=== PATIENT | female | born 1995 | race Caucasian/White ===

== ENCOUNTER 2020-12-21 10:57 | Emergency (ER) | payer SELFPAY ==
[2020-12-21 11:00] VITALS: BP 131/66; PULSE 80; RESP 18; TEMP 36.8; O2SAT 99; BMI 35.9
[2020-12-21 11:27] VITALS: BP 114/71; PULSE 72; RESP 20; O2SAT 100
--- NOTE | 2020-12-21 11:30 | ECG_ITS ---
[facility] Test Date: 2020-12-21 Pat Name: Rianna Sauceda Department: Room: Gender: Female Sample Grinder: : 1995 Requested By: Aime Mccall I Order Number: [id number] Reading MD: MARGY CRUZ Measurements Intervals [place] Rate: 77 P: 35 NH: 157 QRS: 43 QRSD: 80 T: 35 QT: 372 QTc: 423 Interpretive Statements SINUS RHYTHM WITH SINUS ARRHYTHMIA LOW QRS VOLTAGE IN PRECORDIAL LEADS [QRS DEFLECTION < 1.0 mV IN CHEST LEADS] No previous ECG available for comparison Electronically Signed On 12-21-2020 21:16:02 CDT by MARGY CRUZ [email or web address]/store/NU/[id number] f
--- NOTE | 2020-12-21 11:32 | ED_ITS ---
HPI - Neuro Symptoms/Deficit General: Chief Complaint: Neuro Symptoms/Deficit Stated Complaint: STROKE SYS Time Seen by Provider: 12/21/20 11:11 Source: patient and family () Mode of arrival: ambulatory Limitations: no limitations History of Present Illness: HPI Narrative: Patient is a 25-year-old female with no significant past medical history who presents to the emergency department with concerns for stroke. According to the patient and her the patient sister noticed that she had a facial droop yesterday but the patient stated that she only felt different this morning. She feels normal on the right side of her face, her right eye will not close short, and her speech is different. The patient told her it was her allergies that are acting up. She apparently had a similar symptom when she was a child and they told her it was allergies. She is able to ambulate without difficulty, has no focal weakness. No recent fever. Onset (ago): day(s) (1) Timing confirmed by: family member (sister) Location: right face History of same: Yes Severity: mild Quality: weak and numb Relieving factors: none Exacerbating factors: none Context: gradual onset On Anticoagulants: No Associated symptoms: Deny chest pain, cough, diaphoresis, fevers/chills, headache(s), anorexia, malaise, nausea, seizures, short of breath, syncope, tingling, vertigo, vomiting or weakness Treatments Prior to Arrival: none Review of Systems General: Reports: 10 or more systems reviewed and unremarkable except in HPI and below Const: Denies: malaise or diaphoresis Card: Denies: chest pain or syncope GI: Denies: nausea or vomiting Neuro: Denies: headache(s) or vertigo [facility] ED Female Reproductive History: Date of last menstrual period: 10/31/20 NIH stroke score NIHSS: Level Of Consciousness - 1a: 0 Level Of Consciousness Questions - 1b: Both Correct Level Of Consciousness Commands - 1c: Both Correct Best Gaze - 2: Normal Visual Kessler - 3: No Visual Loss Facial Palsy - 4: Co mplete Paralysis Motor Arm Right - 5: No Drift Motor Arm Left - 5: No Drift Motor Leg Right - 6: No Drift Motor Leg Left - 6: No Drift Limb Ataxia - 7: Absent Sensory - 8: Normal Best Language - 9: No Aphasia Dysarthia - 10: Mild/Moderate Dysarthia Extinction And Inattention - 11: 0 Score: Total Score: 4 Physical Exam Const: COMMON NORMALS: no acute distress, average body habitus, patient oriented x3, no limitations, healthy appearing, alert and well nourished HENMT: COMMON NORMALS: normocephalic, atraumatic and moist oral mucous membranes HEAD & SCALP: normocephalic and atraumatic Eye: COMMON NORMALS: Equal, round and reactive pupils present, EOMs intact bilaterally, conjunctivae normal and no scleral icterus CONJUNCTIVA: Yes conjunctivae normal PUPIL: Yes Equal, round and reactive pupils present Neck/C-Spine: COMMON NORMALS: no meningeal signs and no JVD Resp: COMMON NORMALS: normal respiratory effort, No retractions, No use of accessory muscles, clear to auscultation bilaterally and percussion normal AUSCULTATION: clear to auscultation bilaterally PERCUSSION: percussion normal Cardio: COMMON NORMALS: no JVD, regular rate, regular rhythm, S1 normal heart sound present, S2 normal heart sound present, No gallops present (Cardio), No clicks present (Cardio), No murmurs present (Cardio), No rub (Cardio) and Peripheral pulses 2+ throughout RATE: regular rate RHYTHM: regular rhythm HEART SOUNDS: S1 normal heart sound present and S2 normal heart sound present PERIPHERAL PULSES: Peripheral pulses 2+ throughout GI: COMMON NORMALS: Normal to inspection, nondistended, normoactive bowel sounds present, Soft to palpation, non-tender, No hepatosplenomegaly present, no masses and no bruits PALPATION: Yes Soft to palpation and Yes No hepatosplenomegaly present Extremity: COMMON NORMALS: normal to inspection, full ROM, capillary refill normal, no calf tenderness and no pedal edema Neuro: COMMON NORMALS: patient oriented x3 SENSORIUM/ORIENTATION: Yes alert MENINGEAL SIGNS: Yes no meningeal signs CRANIAL NERVES: Yes CN VII (facial) Laterality: right CN VII findings: facial droop, flattened naso-labial fold, unable to puff cheeks, unable to raise eyebrow(s), weak closing of eye(s), asymmetrical smile and impaired sense of taste Skin: COMMON NORMALS: no rashes or lesions noted, no wounds, turgor normal, no jaundice, no petechiae and no mottling GENERAL SKIN EXAM: no rashes or lesions noted and turgor normal Course Reevaluation(s): Reevaluation #1: Discussed her clinical findings with the patient and her and my suspicion that this is duff's palsy. After my explanation, she declined a head CT and was satisfied with my explanation. She was ok with management of Duff's palsy and she voiced understanding and all questions answered. 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 She declined a head CT scan. She is managed with oral corticosteroids, antivirals, and supportive therapy. She will f/u with her PCP. Medical Records: Attestation: I reviewed the patient's medical records. Lab Data: Labs: Lab Results 12/21/20 12/21/20 12/21/20 Range/Units 11:53 11:53 11:53 WBC 11.4 H (4.0-10.0) 10^3/ uL RBC 5.08 (4.1-5.3) 10^6/u L Hgb 11.3 L (11.5-15.3) g/dL Hct 39.2 (37.0-47.0) % MCV 77.2 L (81-99) fL MCH 22.2 L (28.0-34.0) pg MCHC 28.8 L (30.0-36.0) g/dL RDW 16.9 H (12.1-15.1) % Plt Count 320 (130-400) 10^3/c mm MPV 11.9 H (7.4-10.4) fL Neut % (Auto) 64.8 % Lymph % (Auto) 22.8 % [place] % (Auto) 5.6 % Eos % (Auto) 5.7 % Baso % (Auto) 0.9 % Neut # (Auto) 7.40 (1.8-7.7) 10^3/u L Lymph # (Auto) 2.6 (0.8-4.8) 10^3/u L [place] # (Auto) 0.6 (0.2-0.9) 10^3/u L Eos # (Auto) 0.7 (0.0-0.8) 10^3/u L Baso # (Auto) 0.1 (0.0-0.1) 10^3/u L Nucleated RBC % (a uto) 0 % Nucleated RBCs # 0.0 /100WBC PT 14.00 (12.1-14.9) SECO NDS INR 1.05 (0.8-1.2) APTT 28.7 (23.9-36.7) SECO NDS Sodium 140 (136-145) mmol/L Potassium 4.0 (3.5-5.1) mmol/L Chloride 108 H (98-107) mmol/L Carbon Dioxide 22 (22-29) mmol/L Anion Gap 14.0 (5-19) BUN 9 (6-20) mg/dL Creatinine 0.6 (0.5-0.9) mg/dL GFR Calculation 120.8 (90-130) mL/min Glucose 95 (65-115) mg/dL POC Glucose (70-110) mg/dL Calculated Osmolal ity 288 (285-295) mOsm/k g Calcium 8.5 (8.5-10.5) mg/dL Total Bilirubin 0.4 (0.15-1.2) mg/dL AST 24 (0-32) U/L ALT 29 (0-33) U/L Alkaline Phosphata se 59 (35-105) IU/L Total Protein 6.7 (6.6-8.7) g/dL Albumin 3.9 (3.5-5.2) g/dL Globulin 2.8 (1.3-4.6) g/dL HCG, Qual (Negative) Urine Color (Yellow) Urine Appearance (CLEAR) Urine pH (5-7) Ur Specific Gravit y (1.005-1.030) Urine Protein (Negative) Urine Glucose (UA) (Normal) Urine Ketones (Negative) Urine Blood (Negative) Urine Nitrate (Negative) Urine Bilirubin (Negative) Urine Urobilinogen (Negative) mg/dL Ur Leukocyte Stephanie ase (Negative) Urine Opiates Scre en (Negative) ng/mL Ur Barbiturates Sc reen (Negative) ng/mL Ur Phencyclidine S crn (Negative) ng/mL Ur Amphetamines Sc reen (Negative) ng/mL U Benzodiazepines Scrn (Negative) ng/mL Urine Cocaine Scre en (Negative) ng/mL U Marijuana (THC) Screen (Negative) ng/mL 12/21/20 12/21/20 12/21/20 Range/Units 11:53 11:53 11:53 WBC (4.0-10.0) 10^3/ uL RBC (4.1-5.3) 10^6/u L Hgb (11.5-15.3) g/dL Hct (37.0-47.0) % MCV (81-99) fL MCH (28.0-34.0) pg MCHC (30.0-36.0) g/dL RDW (12.1-15.1) % Plt Count (130-400) 10^3/c mm MPV (7.4-10.4) fL Neut % (Auto) % Lymph % (Auto) % [place] % (Auto) % Eos % (Auto) % Baso % (Auto) % Neut # (Auto) (1.8-7.7) 10^3/u L Lymph # (Auto) (0.8-4.8) 10^3/u L [place] # (Auto) (0.2-0.9) 10^3/u L Eos # (Auto) (0.0-0.8) 10^3/u L Baso # (Auto) (0.0-0.1) 10^3/u L Nucleated RBC % (a uto) % Nucleated RBCs # /100WBC PT (12.1-14.9) SECO NDS INR (0.8-1.2) APTT (23.9-36.7) SECO NDS Sodium (136-145) mmol/L Potassium (3.5-5.1) mmol/L Chloride (98-107) mmol/L Carbon Dioxide (22-29) mmol/L Anion Gap (5-19) BUN (6-20) mg/dL Creatinine (0.5-0.9) mg/dL GFR Calculation (90-130) mL/min Glucose (65-115) mg/dL POC Glucose (70-110) mg/dL Calculated Osmolal ity (285-295) mOsm/k g Calcium (8.5-10.5) mg/dL Total Bilirubin (0.15-1.2) mg/dL AST (0-32) U/L ALT (0-33) U/L Alkaline Phosphata se (35-105) IU/L Total Protein (6.6-8.7) g/dL Albumin (3.5-5.2) g/dL Globulin (1.3-4.6) g/dL HCG, Qual Negative (Negative) Urine Color Yellow (Yellow) Urine Appearance Clear (CLEAR) Urine pH 5 (5-7) Ur Specific Gravit y 1.025 (1.005-1.030) Urine Protein Neg (Negative) Urine Glucose (UA) Norm (Normal) Urine Ketones Negative (Negative) Urine Blood Neg (Negative) Urine Nitrate Negative (Negative) Urine Bilirubin Neg (Negative) Urine Urobilinogen Norm (Negative) mg/dL Ur Leukocyte Stephanie ase Negative (Negative) Urine Opiates Scre en Negative (Negative) ng/mL Ur Barbiturates Sc reen Negative (Negative) ng/mL Ur Phencyclidine S crn Negative (Negative) ng/mL Ur Amphetamines Sc reen Negative (Negative) ng/mL U Benzodiazepines Scrn Negative (Negative) ng/mL Urine Cocaine Scre en Negative (Negative) ng/mL U Marijuana (THC) Screen Negative (Negative) ng/mL 12/21/20 Range/Units 11:59 WBC (4.0-10.0) 10^3/ uL RBC (4.1-5.3) 10^6/u L Hgb (11.5-15.3) g/dL Hct (37.0-47.0) % MCV (81-99) fL MCH (28.0-34.0) pg MCHC (30.0-36.0) g/dL RDW (12.1-15.1) % Plt Count (130-400) 10^3/c mm MPV (7.4-10.4) fL Neut % (Auto) % Lymph % (Auto) % [place] % (Auto) % Eos % (Auto) % Baso % (Auto) % Neut # (Auto) (1.8-7.7) 10^3/u L Lymph # (Auto) (0.8-4.8) 10^3/u L [place] # (Auto) (0.2-0.9) 10^3/u L Eos # (Auto) (0.0-0.8) 10^3/u L Baso # (Auto) (0.0-0.1) 10^3/u L Nucleated RBC % (a uto) % Nucleated RBCs # /100WBC PT (12.1-14.9) SECO NDS INR (0.8-1.2) APTT (23.9-36.7) SECO NDS Sodium (136-145) mmol/L Potassium (3.5-5.1) mmol/L Chloride (98-107) mmol/L Carbon Dioxide (22-29) mmol/L Anion Gap (5-19) BUN (6-20) mg/dL Creatinine (0.5-0.9) mg/dL GFR Calculation (90-130) mL/min Glucose (65-115) mg/dL POC Glucose 84 (70-110) mg/dL Calculated Osmolal ity (285-295) mOsm/k g Calcium (8.5-10.5) mg/dL Total Bilirubin (0.15-1.2) mg/dL AST (0-32) U/L ALT (0-33) U/L Alkaline Phosphata se (35-105) IU/L Total Protein (6.6-8.7) g/dL Albumin (3.5-5.2) g/dL Globulin (1.3-4.6) g/dL HCG, Qual (Negative) Urine Color (Yellow) Urine Appearance (CLEAR) Urine pH (5-7) Ur Specific Gravit y (1.005-1.030) Urine Protein (Negative) Urine Glucose (UA) (Normal) Urine Ketones (Negative) Urine Blood (Negative) Urine Nitrate (Negative) Urine Bilirubin (Negative) Urine Urobilinogen (Negative) mg/dL Ur Leukocyte Stephanie ase (Negative) Urine Opiates Scre en (Negative) ng/mL Ur Barbiturates Sc reen (Negative) ng/mL Ur Phencyclidine S crn (Negative) ng/mL Ur Amphetamines Sc reen (Negative) ng/mL U Benzodiazepines Scrn (Negative) ng/mL Urine Cocaine Scre en (Negative) ng/mL U Marijuana (THC) Screen (Negative) ng/mL EKG Data^: EKG 1: Attestation: I personally reviewed and interpreted this EKG as follows: EKG interpretation date: 12/21/20 EKG interpretation time: 11:06 Prior EKG tracings: not available for review Interpretation: Sinus rhythm with sinus arrhythmia. Heart rate [address] changes. Discharge Plan Discharge Patient Disposition: Home Clinical Impression: Duff's palsy Condition: Stable Prescriptions: New Artificial Tears (héctor/min) 83-15 % ointment 1 applic ophthalmic (eye) DAILY PRN (Reason: dry eye(s)) Qty: 3.5 RF: 0 Artificial Tears (cmc) 1 % drops 1 drp ophthalmic (eye) Q4H PRN (Reason: dry eye(s)) Qty: 15 RF: 0 Discharge Orders: Discharge ED (Routine); Ordered 12/21/20 Ordered By: Aime Mccall Discharge Diet: Usual diet Discharge Activity: Increase activity as tolerated Patient Instructions: Duff Palsy (ED) Activity Restrictions/Additional Instructions: Return for any new or worsening symptoms. Follow-up with your primary care provider within 3 days. Use the medications as required. During the day use the artificial eyedrops at least every 4 hours and as often as you need, and at night to use the artificial tears eye ointment before you go to bed. I also wanted to tape your eye shut when you are going to bed to prevent you from getting dry. During the day wear protective eyewear such as protective glasses to prevent your eye from getting dry or foreign body getting into the eye. Your symptoms should resolve within a few days but sometimes it can take several weeks to months to resolve. Coding Level of Care Code ED Medical Staff Coordinator for Chg Fwd Exam Comprehensive
[2020-12-21 12:00] LABS: Add Urine Microscopic? NO; Charge for UA Resulting for Rev
[2020-12-21 12:03] LABS: Glucose Point of Care 84 mg/dL (70-110)
[2020-12-21 12:06] LABS: HCG Qualitative Urine. Negative (Negative)
[2020-12-21 12:07] LABS: Bilirubin Urine Neg (Negative); Blood Urine Neg (Negative); Glucose Urine UA Norm (Normal); Ketones Urine Negative (Negative); Leukocyte Esterase Urine Negative (Negative); Nitrate Urine Negative (Negative); Protein Urine Neg (Negative); Specific Gravity, Urine 1.025 (1.005-1.030); Urine Appearance Clear (CLEAR); Urine Color Yellow (Yellow); Urobilinogen Urine Norm (Negative); pH Urine 5 (5-7)
[2020-12-21 12:10] LABS: Basophils # 0.1 10^3/uL (0.0-0.1); Basophils % 0.9 %; Eosinophils # 0.7 10^3/uL (0.0-0.8); Eosinophils % 5.7 %; Hematocrit 39.2 % (37.0-47.0); Hemoglobin 11.3 g/dL (11.5-15.3); Lymphocytes # 2.6 10^3/uL (0.8-4.8); Lymphocytes % 22.8 %; Mean Corpuscular HGB Conc 28.8 g/dL (30.0-36.0); Mean Corpuscular Hemoglobin 22.2 pg (28.0-34.0); Mean Corpuscular Volume 77.2 fL (81-99); Mean Platelet Volume 11.9 fL (7.4-10.4); Monocytes # 0.6 10^3/uL (0.2-0.9); Monocytes % 5.6 %; Neutrophils % 64.8 %; Nucleated Red Blood Cells % 0 %; Platelet Count 320 10^3/cmm (130-400); Red Blood Count 5.08 10^6/uL (4.1-5.3); Red Cell Distribution Width 16.9 % (12.1-15.1); White Blood Count 11.4 10^3/uL (4.0-10.0)
[2020-12-21 12:12] LABS: Amphetamines Screen Urine Negative (Negative); Barbiturates Screen Urine Negative (Negative); Benzodiazepines Screen Urine Negative (Negative); Cocaine Screen Urine Negative (Negative); INR 1.05 (0.8-1.2); Opiate Screen Urine Negative (Negative); PCP Screen Urine Negative (Negative); THC Screen Urine Negative (Negative)
[2020-12-21 12:13] LABS: Partial Thromboplastin Time 28.7 SECONDS (23.9-36.7)
[2020-12-21 12:23] LABS: Alanine Aminotransferase 29 U/L (0-33); Albumin Level 3.9 g/dL (3.5-5.2); Alkaline Phosphatase 59 IU/L (35-105); Aspartate Amino Transferase 24 U/L (0-32); Blood Urea Nitrogen 9 mg/dL (6-20); Calcium 8.5 mg/dL (8.5-10.5); Carbon Dioxide 22 mmol/L (22-29); Chloride 108 mmol/L (98-107); Globulin 2.8 g/dL (1.3-4.6); Glomerular Filtration Rate 120.8 mL/min (90-130); Glucose 95 mg/dL (65-115); Osmolality Calculated 288 mOsm/kg (285-295); Sodium 140 mmol/L (136-145); Total Bilirubin 0.4 mg/dL (0.15-1.2); Total Protein 6.7 g/dL (6.6-8.7)
[2020-12-21 12:49] LABS: Slide Review Slide Review Perform
[2020-12-21 13:13] VITALS: BP 115/55; PULSE 78; RESP 20; O2SAT 97
== END 2020-12-21 13:14 | disposition home or self-care (01) ==
PROVIDERS: Emergency Provider Family Medicine
DX: G51.0 Bell's palsy (principal)
CPT/HCPCS: 36416; 80053; 80306; 81003; 81025; 82962; 85025; 85610; 85730; 93005; 99284

== ENCOUNTER → 2021-12-31 10:47 | Outpatient (BNVA) | payer BC, MEDICAID, SELFPAY | PROVIDERS: Visit Provider Family Medicine | DX: O36.4XX0 Maternal care for intrauterine death, not applicable or unspecified (principal) | CPT/HCPCS: 84702 ==

== ENCOUNTER → 2022-01-14 13:35 | Outpatient (BNVA) | payer BC, MEDICAID, SELFPAY | PROVIDERS: Visit Provider Family Medicine | DX: O03.9 Complete or unspecified spontaneous abortion without complication (principal) | CPT/HCPCS: 84702 ==

== ENCOUNTER → 2022-06-22 12:55 | Outpatient (BNVA) | payer BC, MEDICAID, SELFPAY | PROVIDERS: PCP Family Medicine; Visit Provider Family Medicine | DX: R30.0 Dysuria (principal); Z34.90 Encounter for supervision of normal pregnancy, unspecified, unspecified trimester; Z34.80 Encounter for supervision of other normal pregnancy, unspecified trimester; Z87.59 Personal history of other complications of pregnancy, childbirth and the puerperium | CPT/HCPCS: 80307; 81000; 81025; 84144; 84156; 84443; 84702; 85025; 86592; 86762; 86803; 86850; 86900; 87086; 87340; 87491; 87591; 87806; 88175 ==

== ENCOUNTER → 2022-06-25 10:24 | Outpatient (BNVA) | payer BC, MEDICAID, SELFPAY | PROVIDERS: PCP Family Medicine; Visit Provider Family Medicine | DX: Z34.80 Encounter for supervision of other normal pregnancy, unspecified trimester (principal); Z87.59 Personal history of other complications of pregnancy, childbirth and the puerperium | CPT/HCPCS: 84144; 84702 ==

== ENCOUNTER → 2022-07-12 10:21 | Outpatient (BNVA) | payer BC, MEDICAID, SELFPAY | PROVIDERS: PCP Family Medicine; Visit Provider Family Medicine | DX: Z34.91 Encounter for supervision of normal pregnancy, unspecified, first trimester (principal); Z3A.08 8 weeks gestation of pregnancy | CPT/HCPCS: 76801 ==

== ENCOUNTER → 2022-09-09 09:24 | Outpatient (BNVA) | payer BC, MEDICAID, SELFPAY | PROVIDERS: PCP Family Medicine; Visit Provider Family Medicine | DX: Z34.80 Encounter for supervision of other normal pregnancy, unspecified trimester (principal) | CPT/HCPCS: 81511 ==

== ENCOUNTER 2022-09-30 08:03 | Outpatient (CLI) | payer BC, MEDICAID, SELFPAY ==
--- NOTE | 2022-09-30 08:45 | US_ITS ---
WS: [id number] OBSTETRICAL ULTRASOUND COMPLETE HISTORY: Anatomy US COMPARISON: 07/12/2022 Single intrauterine gestation in breech presentation. Cervix is Closed and normal length. Just superior to the cervix is a hypoechoic area elevated in the inferior portion of the placenta. I suspect this is probably a Skillman Martinez. Less likely retroplacen samir hemorrhage. Patient is not symptomatic. Cervical length is 4.3 cm. Normal amount of amniotic fluid surrounds the fetus. Placenta: Posterior, no previa or abruption. The distal placenta is being elevated by a hypoechoic r egion along the posterior uterine wall. Placenta grade 1 Heart: 153 BPM. Four chambers are identified. RIGHT and LEFT outflow tracts are unremarkable. Anatomy: Intracranial structures and spine are normal. kidneys, stomach and urinary bladd er are unremarkable. Abdominal wall, three-vessel cord and cord insertion site are normal. 4 extremities are present. profile: Unremarkable. Gender: Female. measurements: BPD = 4.5 cm = 19w4d; HC = 17.7 cm = 20w1d; AC = 15.2 cm = 20w3d; FL = 3.3 cm = 20w2d; EFW: 347 g. not available. Biometry is internally concordant. AGA by ultrasound: 20w1d NOEL by ultrasound: 02/16/2023 US/US OB >= 14 weeks fetus [id number] IMPRESSION: 1. Single intrauterine gestation of 20w1d with an NOEL of 02/16/2023. 2. Unremarkable screening survey of anatomy. 3. Elevation of the distal posterior placenta. Favor this is a Zeyad Martinez. Patient was not symptomatic during this examination. Short-term reevaluation of the placenta can be obtained for resolution. This did not change at the end of the examination.
== END 2022-09-30 08:04 | disposition home or self-care (01) ==
LOC: RAD 08:04
PROVIDERS: PCP Family Medicine; Visit Provider Family Medicine
DX: Z34.80 Encounter for supervision of other normal pregnancy, unspecified trimester (principal)
CPT/HCPCS: 76805

== ENCOUNTER 2022-10-13 08:52 | Outpatient (CLI) | payer BC, MEDICAID, SELFPAY ==
--- NOTE | 2022-10-13 07:45 | US_ITS ---
WS: [id number] LIMITED OBSTETRICAL ULTRASOUND HISTORY: Elevated placental edge COMPARISON: 09/30/2022 and 07/12/2022 Presentation: Breech. Cervix: Closed and normal length. Increased soft tissue adjacent to the cervical os involving the low er uterine segment is no longer present. This is most consistent with a Towner Matrinez which has resol bob. Placenta: Posterior, no previa. Grade: 1 HEART: FHR of 144 BPM. measurements: BPD = 5.0 cm = 21w0d; HC = 19.7 cm = 21w6d; AC = 16.8 cm = 21w6d; FL = 3.7 cm = 21w6d; MELISA: 11.3 cm EFW: 454 g; AGA by ultrasound: 21w5d NOEL by ultrasound: 02/18/2023 US/US OB limited [id number] IMPRESSION: 1. Single intrauterine gestation of 21 weeks 5 days with an EDC of 02/18/2023. Normal growth since the first trimester ultrasound. 2. Interval resolution of the increased soft tissue near the internal cervical os and distal placental edge. Consistent with resolved Towner Martinez.
== END 2022-10-13 08:53 | disposition home or self-care (01) ==
LOC: RAD 08:55
PROVIDERS: PCP Family Medicine; Visit Provider Family Medicine
DX: R93.89 Abnormal findings on diagnostic imaging of other specified body structures (principal); Z34.80 Encounter for supervision of other normal pregnancy, unspecified trimester; Z3A.21 21 weeks gestation of pregnancy
CPT/HCPCS: 76815

== ENCOUNTER → 2022-11-04 10:36 | Outpatient (BNVA) | payer BC, MEDICAID, SELFPAY | PROVIDERS: PCP Family Medicine; Visit Provider Family Medicine | DX: Z34.80 Encounter for supervision of other normal pregnancy, unspecified trimester (principal) | CPT/HCPCS: 82950 ==

== ENCOUNTER → 2022-12-23 10:39 | Outpatient (BNVA) | payer BC, MEDICAID, SELFPAY | PROVIDERS: PCP Family Medicine; Visit Provider Family Medicine | DX: Z34.80 Encounter for supervision of other normal pregnancy, unspecified trimester (principal); Z51.81 Encounter for therapeutic drug level monitoring | CPT/HCPCS: 85025 ==

== ENCOUNTER → 2023-01-19 13:54 | Outpatient (BNVA) | payer BC, MEDICAID, SELFPAY | PROVIDERS: PCP Family Medicine; Visit Provider Family Medicine | DX: Z34.90 Encounter for supervision of normal pregnancy, unspecified, unspecified trimester (principal) | CPT/HCPCS: 87081 ==

== ENCOUNTER 2023-01-31 22:35 | Outpatient (CLI) | payer BC, MEDICAID, SELFPAY ==
[2023-01-31] VITALS (15 sets, daily range): BP systolic 122–139; BP diastolic 65–84; PULSE 74–96; RESP 16; O2SAT 97–99; BMI 38.3
[2023-01-31 23:20] LABS: Actim Prom Negative
== END 2023-01-31 23:50 | disposition home or self-care (01) ==
LOC: OPOB 22:35 → OBGYN 22:36
PROVIDERS: PCP Family Medicine; Visit Provider Family Medicine
DX: O46.90 Antepartum hemorrhage, unspecified, unspecified trimester (principal); Z3A.00 Weeks of gestation of pregnancy not specified
CPT/HCPCS: 59025; 84112; 99211

== ENCOUNTER 2023-02-10 05:11 | Inpatient (IN) | payer BC, MEDICAID, SELFPAY ==
--- NOTE | 2023-01-25 09:22 | ANES.PREANE2 ---
Pre-Anesthetic Assessment Height/Weight: Height 1.55 m Operation Date: 02/10/23 07:20 Proposed Procedures p repeat low transverse section with BLT tubal ligation(Bilateral) - Adrian Mendez MD Familial anesthetic complications: None Social No alcohol and No tobacco Exam alert, oriented x 3, clear to auscultation bilaterally and regular rate & rhythm Airway Mallampati: Class II Dentition: false Anesthetic Plan ASA status: 2 Anesthesia: Regional (specify below) (spinal) Risk of > 500 ml blood loss (7ml/kg in children): Yes, adequate IV access and fluids planned Medications/Allergies Home Medications Medication Instructions Recorded Confirmed Last Taken Type carboxymethylcellulose sodium 1 % 1 drp ophthalmic (eye) Q4H PRN dry 12/21/20 01/19/23 Unknown Rx eye drops (Artificial Tears eye(s) #15 mL (carboxymethylcellulose)) white petrolatum-mineral oil 83 1 applic ophthalmic (eye) DAILY 12/21/20 01/19/23 Unknown Rx %-15 % eye ointment (Artificial PRN dry eye(s) #3.5 grams Tears (petrolatum/mineral oil)) prenat.vits,cathy,mss-tqmf-[id number] 1 tab PO DAILY 06/22/22 01/19/23 Unknown History Allergies Allergy/AdvReac Type Severity Reaction Status Date / Time Penicillins Allergy ALGY-Hives Verified 12/23/22 10:13 PFS Anesthesia Medical History (Updated 09/30/22 @ 16:16 by Adrian Mendez MD) Asthma Duff's palsy Surgical History (Updated 06/22/22 @ 21:18 by Adrian Mendez MD) Hx of section C/S x 3 Data Anesthesia Cardiac Studies: No Data to Display
[2023-02-10] VITALS (30 sets, daily range): BP systolic 97–137; BP diastolic 52–106; PULSE 56–118; RESP 16–18; TEMP 35.2–36.4; BMI 38.3
[2023-02-10] MEDS: lactated ringers 1,000 ML 999 ML IV (06:30)
[2023-02-10] MEDS: clindamycin 900 MG/50 ML PREMIX 100 MG IV (06:41)
[2023-02-10] MEDS: gentamicin inj 140 MG in sodium chloride 0.9% (100 ml) 100 ML 103.5 MG IV (06:44)
[2023-02-10] MEDS: citric acid-sodium citrate 30 mL UDC PO (06:46)
[2023-02-10] MEDS: metoclopramide 5 mg/mL SDV 2 mL 10 MG IVP (06:47)
[2023-02-10] MEDS: famotidine 20 mg/2 mL INJ IVP (06:47)
--- NOTE | 2023-02-10 06:49 | PM.HP ---
Providers/Chief Complaint Admitting Physician: Adrian Mendez MD Primary Care Provider: Adrian Mendez MD Chief Complaint: C Section History of Present Illness Rianna Saucdea is a 27 year old @ 39.1 weeks by 8 wk US inconsistent with LMP. Preg c/b prior LTCS x 3, h/o preeclampsia, h/o gDM diet controlled, h/o in NICU for resp. issues, h/o asthma. The patient presents for a scheduled repeat low-transverse section and requests a bilateral tubal ligation. She has been feeling well. She denies any fevers, chest pains, cough, nausea, vomiting, diarrhea, constipation, dysuria. She last ate and drank around 1130 last night. Review of Systems Narrative: See HPI Medications/Allergies Home Medications Medication Instructions Recorded Confirmed Last Taken Type prenat.vits,cathy,yrl-arcd-eywta 1 tab PO DAILY 06/22/22 02/10/23 02/10/23 History Allergies Allergy/AdvReac Type Severity Reaction Status Date / Time Penicillins Allergy ALGY-Hives Verified 12/23/22 10:13 PFSH Acute PFSH: Medical History Asthma Duff's palsy Surgical History Hx of section C/S x 3 Social History (Updated 02/10/23 @ 07:08 by Adrian Mendez MD) Smoking and tobacco status: never smoked Alcohol intake: never Substance/Drug Use: never Female Reproductive History: : 7 Vitals/I&O/Wt Last Vital Signs Pulse 73 02/10/23 05:18 Resp 16 02/10/23 05:27 BP 123/69 02/10/23 05:18 O2 Del Method Room Air 02/10/23 05:30 Weight last 48 hrs Weight 203 lb Physical Exam Narrative: General: Alert and oriented x3 Eyes: Pupils equal round and reactive to light and accommodation Mouth: Mucous membranes moist, pharynx non-erythematous Cardiac: Regular rate and rhythm without murmurs Lungs: Clear to auscultation bilaterally without wheezes, crackles or rhonchi Abdomen: Soft, non-tender, fundus consistent with gestational age Extremities: Trace edema in the bilateral lower extremities Data 02/10/23 06:35 A&P Assessment and plan (1) Supervision of normal intrauterine in multigravida: The patient is doing well at this time. She is in her normal state of health. She has had no significant complications during this . We will plan for a repeat low-transverse section with bilateral tubal ligation. All questions were answered. The patient is in agreement with the current plan of care. Attestations Medical Necessity Statement*: The patient will be here for greater than 2 midnights due to routine intrapartum and management of labor and delivery. Coding Level of Care Code Acute Code for Chg Fwd Diagnoses Supervision of normal intrauterine in multigravida Z34.80
[2023-02-10 06:58] LABS: Basophils # 0.1 10^3/uL (0.0-0.1); Basophils % 0.6 %; Eosinophils # 0.3 10^3/uL (0.0-0.8); Eosinophils % 3.7 %; Hematocrit 38.3 % (37.0-47.0); Lymphocytes # 1.8 10^3/uL (0.8-4.8); Lymphocytes % 19.4 %; Mean Corpuscular HGB Conc 31.3 g/dL (30.0-36.0); Mean Corpuscular Hemoglobin 26.1 pg (28.0-34.0); Mean Corpuscular Volume 83.3 fl (81-99); Mean Platelet Volume 12.9 fL (7.4-10.4); Monocytes # 0.5 10^3/uL (0.2-0.9); Monocytes % 5.8 %; Neutrophils # 6.34 10^3/uL (1.8-7.7); Neutrophils % 70.2 %; Nucleated Red Blood Cells % 0 %; Platelet Count 223 10^3/cmm (130-400); Red Cell Distribution Width 13.9 % (12.1-15.1)
--- NOTE | 2023-02-10 06:58 | P.ANESUD_ITS ---
Pre-Anesthetic Update Pre-Anesthetic Assessment: Date of Surgery/Procedure: 02/10/23 Preop Dayana gnosis: Previous Section, undesired fertility Proposed Procedure: Operation Date: 02/10/23 07:20 Proposed Procedures p repeat low transverse section with BLT tubal ligation(Bilateral) - Adrian Mendez MD Any changes to Pre-Anesthetic Assessment?: No Changes from Pre-Anesthetic Assessment: no Last Intake: 2229 meal 2300 drink Vitals: Pulse Rate 73 02/10/23 05:18 Pulse Rhythm Regular 02/10/23 05:30 Pulse Strength 3+ Normal 02/10/23 05:30 Respiratory Rate 16 02/10/23 05:27 Respiratory Effort Spontaneous, Non- Labored 02/10/23 05:30 Respiratory Depth Normal 02/10/23 05:30 Respiratory Patter n Normal 02/10/23 05:30 Blood Pressure 123/69 02/10/23 05:18 Oxygen Delivery Me thod Room Air 02/10/23 05:30 Cardiac Studies: No Data to Display
--- NOTE | 2023-02-10 09:17 | PM.OP ---
Operative Report Date of procedure: February 10, 2023 Pre-op diagnosis: 1. Intrauterine at 39.1 weeks gestation 2. Prior low-transverse section x3 3. Patient desires bilateral tubal ligation 4. History of asthma Post-op diagnosis: 1. Intrauterine status post repeat low-transverse section with bilateral tubal ligation at 39.1 weeks gestation 2. Prior low-transverse section x3 3. Delivery of healthy female weighing 7 pounds 10 ounces with Apgars of 8 and 9 Post-op findings: Moderate scar tissue present without significant adhesions appreciated. Procedure done: Repeat low transverse section with bilateral tubal ligation Specimens removed/disposition: Bilateral tubal segments sent to pathology Placenta discarded Surgeon: Adrian Mendez MD Estimated blood loss (mL): 300 Complications: None Findings: Thin lower uterine segment prior to delivery. Brief History: Rianna Sauceda is a 27 year old G7 now P4 status post repeat low-transverse section with bilateral tubal ligation @ 39.1 weeks by 8 wk US inconsistent with LMP. Preg c/b prior LTCS x 3, h/o preeclampsia, h/o gDM diet controlled, h/o infant in NICU for resp. issues, h/o asthma. Procedure: After informed consent was obtained, the patient was taken to the operating room and the patient was prepped and draped in a normal sterile fashion in the dorsal supine position.? A spinal was placed and adequate anesthesia was obtained.? At 7:33 AM on 02/10/2023 a Pfannenstiel skin incision was made and carried through to the underlying layer of fascia using a scalpel.? The fascial incision was then extended laterally using curved Mayos.? The fascia was then grasped with Jaziel clamps and the underlying rectus muscles were dissected off taking care to avoid injury to the underlying tissues.? The peritoneum was entered bluntly with one digit.? It was then bluntly.? The bladder blade was placed and the vesicouterine peritoneum was well below the lower uterine segment of the uterus.? The uterine incision was made in the lower uterine segment in a transverse fashion with the scalpel at 7:42 AM.? The lower uterine segment was noted to be thin and primarily scar tissue. The amniotic membrane was entered bluntly and a large amount of clear fluid was noted.? Uterine pressure was placed and the infant's head delivered without complication at 7:43 AM.? There was 1 nuchal cord.? This was reduced prior to delivery of the 's body. The mouth and nose were suctioned.? The rest of the delivered without difficulty.? The took a breath immediately upon delivery.? The cord was clamped and cut and the infant was handed to the awaiting pediatric nurses.? The placenta was then manually expressed.? The uterus was exteriorized from the abdomen.? A wet lap was used to clear the uterus of clots and debris.? The bladder blade was reinserted and the uterine incision was closed using 0 chromic in a running locking fashion.? The uterus was noted to be firm.? A second layer of the same suture was used in the same manner.? Excellent hemostasis was obtained. The bilateral fallopian tubes were located. Babcocks were used to raise the fallopian tube segment and a window was burned underneath the right fallopian tube. 0 chromic was used tie off a section of the tube on each side. A tube segment was removed using Metzenbaums. The remaining fallopian tube segment and was cauterized on each side. A modified [place] technique was used. The fallopian tube segment was sent to pathology. This was repeated on the left side. Excellent hemostasis was noted. Next the posterior cul-de-sac was inspected and was cleared of any blood. The gutters were cleared of any further clots and debris and the uterine incision was again inspected and hemostasis was noted.? The subfascial tissue was inspected for hemostasis and the peritoneum was re-approximated using 2-0 plain in a running fashion.? The fascia was then re-approximated using 0 Vicryl in a running fashion.? The subcutaneous tissue was inspected for hemostasis.? Alec's fascia was then re-approximated using 3-0 plain in a running fashion.? Good hemostasis was noted.? The subcutaneous tissue was then re-approximated using a subcuticular stitch.? The patient tolerated the procedure well and was recovered in stable condition.? Estimated blood loss was 300 mL. Urine in the Son catheter was clear. The patient was taken to recovery in good condition.
[2023-02-10] MEDS: diphenhydrAMINE 50 mg/mL SDV 1mL 25 MG IVP (11:13)
[2023-02-10] MEDS: dextrose 5%-lactated ringers 1,000 ML 125 ML IV (12:06)
--- NOTE | 2023-02-10 15:43 | ANE.PACU2 ---
Inpatient post-anesthesia follow up: Airway intact: Yes Vital signs: Temperature 97.5 F Pulse Rate 76 Respiratory Rate 18 Blood Pressure 105/56 Pulse Oximetry Oxygen Delivery Me thod Room Air Oxygen Flow Rate Fraction of Inspir ed Oxygen Hydration adequate: Yes Nausea and vomiting: No Pain level: 2 Mental status: Baseline
[2023-02-10] MEDS: docusate sodium 100 mg Capsule PO (18:18)
[2023-02-10] MEDS: simethicone 80 mg Chew PO (19:49)
[2023-02-10] MEDS: lanolin oint 7 gm 1 APPLIC TOPICAL (19:49)
[2023-02-10 20:18] LABS: Hematocrit 35.4 % (37.0-47.0); Hemoglobin 11.1 g/dL (11.5-15.3); Mean Corpuscular HGB Conc 31.4 g/dL (30.0-36.0); Mean Corpuscular Hemoglobin 26.2 pg (28.0-34.0); Mean Corpuscular Volume 83.7 fl (81-99); Mean Platelet Volume 12.7 fL (7.4-10.4); Platelet Count 171 10^3/cmm (130-400); Red Blood Count 4.23 10^6/uL (4.1-5.3); Red Cell Distribution Width 14.2 % (12.1-15.1); White Blood Count 8.8 10^3/uL (4.0-10.0)
[2023-02-10] MEDS: ketorolac 30 mg/mL INJ IVP (21:58)
[2023-02-11] VITALS (7 sets, daily range): BP systolic 114–119; BP diastolic 60–71; PULSE 78–96; RESP 16–18; TEMP 35.7–36.4
[2023-02-11] MEDS: ketorolac 30 mg/mL INJ IVP (04:22)
[2023-02-11] MEDS: simethicone 80 mg Chew PO (04:22)
[2023-02-11] MEDS: docusate sodium 100 mg Capsule PO (08:53)
[2023-02-11] MEDS: prenatal vitamin Capsule 1 CAP PO (08:53)
--- NOTE | 2023-02-11 15:12 | P.DS_ITS ---
Discharge Providers Date of Admission: 02/10/23 05:11 Date of Discharge: February 11, 2023 Attending Provider at Admission: Adrian Mendez MD Attending Provider at Discharge: Adrian Mendez MD Primary Care Provider: Adrian Mendez MD Diagnoses at Discharge Discharge Diagnosis (1) Supervision of normal intrauterine in multigravida: Status: Resolved Other Information Additional DC diagnoses/information: 1.? Intrauterine status post repeat low-transverse section with bilateral tubal ligation at 39.1 weeks gestation 2.? Prior low-transverse section x3 3.? Delivery of healthy female weighing 7 pounds 10 ounces with Apgars of 8 and 9 Reason for Visit Reason for Visit: C Section Brief History: Rianna Sauceda is a 27 year old G7 now P4 status post repeat low-transverse section with bilateral tubal ligation @ 39.1 weeks by 8 wk US inconsistent with LMP. Preg c/b prior LTCS x 3, h/o preeclampsia, h/o gDM diet controlled, h/o infant in NICU for resp. issues, h/o asthma. The patient presented for a scheduled repeat low-transverse section with bilateral tubal ligation. She was in her normal state of health upon arrival. Hospital Course Hospital Course The patient had a repeat low-transverse section with bilateral tubal ligation. She did not have any complications related to this. she is doing well and her pain is well controlled. She is ambulating, voiding, passing gas and tolerating food by mouth. Routine discharge instructions were discussed. The patient requested to be discharged home. Since she is doing well I felt that this was safe to do as long as she will take things easy at home. She agreed to this. All questions were answered. The patient is in agreement with the current plan of care. Physical Exam Narrative: General: Alert and oriented x3 Cardiac: Regular rate and rhythm without murmurs Lungs: Clear to auscultation bilaterally without wheezes, crackles or rhonchi Abdomen: Soft, moderate tenderness over the uterus. Minimal tenderness diffusely. Fundus is firm and well below the umbilicus. Incision is clean and dry without signs of infection or dehiscence. Mild edema noted in the pannus. Extremities: Trace edema in the bilateral lower extremities Urinary Catheter Management: Son: Cath Placed During This Visit: yes, but has since been removed by the nurse Reason for Continuing Indwelling Catheter: Decision to DC Catheter Urinary Catheter Date of Insertion: 02/10/23 Urinary Catheter Time of Insertion: 07:23 Date Urinary Catheter Removed: 02/10/23 Time Urinary Catheter Discontinued: 19:52 Discharge Data Studies Completed and Pending Pending at discharge Category Date Time Status Pathology: Surgical [PTH] Routine Pth 02/10/23 10:32 Received Laboratory Results WBC 8.8 10^3/uL (4.0-10.0) 02/10/23 19:55 RBC 4.23 10^6/uL (4.1-5.3) 02/10/23 19:55 Hgb 11.1 g/dL (11.5-15.3) L 02/10/23 19:55 Hct 35.4 % (37.0-47.0) L 02/10/23 19:55 MCV 83.7 fl (81-99) 02/10/23 19:55 MCH 26.2 pg (28.0-34.0) L 02/10/23 19:55 MCHC 31.4 g/dL (30.0-36.0) 02/10/23 19:55 RDW 14.2 % (12.1-15.1) 02/10/23 19:55 Plt Count 171 10^3/cmm (130-400) 02/10/23 19:55 MPV 12.7 fL (7.4-10.4) H 02/10/23 19:55 Neut % (Auto) 70.2 % 02/10/23 06:35 Lymph % (Auto) 19.4 % 02/10/23 06:35 [place] % (Auto) 5.8 % 02/10/23 06:35 Eos % (Auto) 3.7 % 02/10/23 06:35 Baso % (Auto) 0.6 % 02/10/23 06:35 Neut # (Auto) 6.34 10^3/uL (1.8-7.7) 02/10/23 06:35 Lymph # (Auto) 1.8 10^3/uL (0.8-4.8) 02/10/23 06:35 [place] # (Auto) 0.5 10^3/uL (0.2-0.9) 02/10/23 06:35 Eos # (Auto) 0.3 10^3/uL (0.0-0.8) 02/10/23 06:35 Baso # (Auto) 0.1 10^3/uL (0.0-0.1) 02/10/23 06:35 Nucleated RBC % (auto) 0 % 02/10/23 06:35 Nucleated RBCs # 0.0 /100WBC 02/10/23 06:35 Blood Type O Positive 02/10/23 06:35 Rho(D) Type Positive 02/10/23 06:35 Antibody Screen Negative 02/10/23 06:35 Vitals Last Vital Signs Temp 96.3 F L 02/11/23 11:14 Pulse 90 02/11/23 11:15 Resp 16 02/11/23 11:00 BP 117/60 02/11/23 11:15 O2 Del Method Room Air 02/10/23 21:57 Discharge Plan Discharge Patient Disposition: Home Condition: Good Prescriptions: New ferrous sulfate 325 mg (65 mg iron) Tablet,Delayed Release (Dr/Ec) 325 mg PO BIDWM Qty: 30 0RF ibuprofen 800 mg Tablet 800 mg PO TID Qty: 60 0RF oxycodone-acetaminophen 5-325 mg Tablet 1 tab PO Q4H PRN (Reason: Moderate To Severe Pain) Qty: 15 0RF Continued prenat.vits,cathy,vqv-aiae-efini Tablet 1 tab PO DAILY Discharge Orders: Discharge Order (Routine); Ordered 02/11/23 Ordered By: Adrian Mendez Referrals: Adrian Mendez MD [Primary Care Provider] - 2 weeks (Please call Dr. Mendez's office first thing Tuesday morning to schedule your 2 week post operative appointment. ) Discharge Diet: Regular Discharge Activity: Limit activity as instructed Patient Instructions: Iron Supplements (By mouth), Ibuprofen (By mouth), Oxycodone/Acetaminophen (By mouth), Depression (DC), Preeclampsia and Eclampsia After Delivery (GEN), OB Discharge Report, Opioid Safety, OB [facility], Abnormal Bleeding Activity Restrictions/Additional Instructions: Do not lift anything heavier than your in the car seat for the first 3 weeks, then gradually increase. If you have any concern for infection in your incision site, please seek immediate medical attention. Nothing per vagina for 6 weeks. Discharge Attestations Time Spent in Discharge Care*: greater than 30 min Quality Metrics Clinical Quality Measures [ No reported AMI, CVA or VTE this stay] Coding Level of Care Code Acute Code for Chg Fwd Diagnoses Supervision of normal intrauterine in multigravida Z34.80
== END 2023-02-11 17:00 | disposition home or self-care (01) | DRG 785 ==
PROVIDERS: Admitting Provider Family Medicine; PCP Family Medicine; Visit Provider Family Medicine
PROC: 10D00Z1 Extraction of Products of Conception, Low, Open Approach (ICD-10-PCS; CPT 59514; principal; 2023-02-10 07:00)
DX: O34.211 Maternal care for low transverse scar from previous cesarean delivery (principal); Z3A.39 39 weeks gestation of pregnancy; Z37.0 Single live birth; O69.2XX0 Labor and delivery complicated by other cord entanglement, with compression, not applicable or unspecified; O75.89 Other specified complications of labor and delivery; J45.909 Unspecified asthma, uncomplicated; Z88.0 Allergy status to penicillin; Z30.2 Encounter for sterilization
CPT/HCPCS: 36415; 51702; 59025; 59409; 85025; 85027; 86850; 86900; 88302; 96374; 96376; J1200; J1580; J1885; J2274; J2370; J2405; J2590; J2765; J3010; J3490; J7030; J7120; J7121

== ENCOUNTER → 2023-02-15 14:07 | Outpatient (BNVA) | payer BC, MEDICAID, SELFPAY | PROVIDERS: PCP Family Medicine; Visit Provider Family Medicine | DX: K13.0 Diseases of lips (principal) | CPT/HCPCS: 87255 ==